=== PATIENT | male | born 1975 | race Caucasian/White ===

== ENCOUNTER 2020-04-05 10:51 | Inpatient (IN) ==
[2020-04-05] MEDS ORDERED: HEPARIN SODIUM IN D5W 25,000 UNITS/500 ML BAG IV PRN (12:17)
[2020-04-05 12:46] LABS: BASOPHILS % (AUTO) 0.3 % (0.2-1.0); EOSINOPHILS % (AUTO) 0.1 % (0.9-2.9); HEMATOCRIT 44.3 % (42.0-54.0); HEMOGLOBIN 14.7 g/dL (13.5-18.0); LYMPHOCYTES # (AUTO) 0.8 X10^3/uL (1.3-2.9); LYMPHOCYTES % (AUTO) 5.5 % (21.0-51.0); MEAN CORPUSCULAR HGB CONC 33.2 g/dL (33.0-35.0); MEAN CORPUSCULAR VOLUME 93.4 fL (80.0-100.0); MONOCYTES # (AUTO) 0.6 x10^3/uL (0.3-0.8); MONOCYTES % (AUTO) 3.9 % (0.0-13.0); NEUTROPHILS # (AUTO) 13.4 x10^3/uL (2.2-4.8); NEUTROPHILS % (AUTO) 90.2 % (42.0-75.0); PLATELET COUNT 259 X10^3/uL (150.0-450.0); RED BLOOD COUNT 4.74 X10^6/uL (4.7-6.0); RED CELL DISTRIBUTION WIDTH 13.6 % (11.6-16.5); WHITE BLOOD COUNT 14.9 X10^3/uL (3.6-10.0)
[2020-04-05 13:01] LABS: ALANINE AMINOTRANSFERASE 58 Units/L (12-78); ALBUMIN 3.5 g/dL (3.4-5.0); ALKALINE PHOSPHATASE 70 Units/L (46-116); ASPARTATE AMINO TRANSFERASE 54 Units/L (15-37); BLOOD UREA NITROGEN 21 mg/dL (7-18); CARBON DIOXIDE 27.4 mmol/L (21-32); CHLORIDE 104 mmol/L (98-107); CREATININE 1.29 mg/dL (0.70-1.30); SODIUM 140 mmol/L (136-145); TOTAL PROTEIN 7.5 g/dL (6.4-8.2); eGFR NON BLACK RACES > 60 (>60)
[2020-04-05 13:34] LABS: BAND NEUTROPHILS % 3 % (0-10); PLATELET MORPHOLOGY COMMENT NORMAL (NORMAL)
[2020-04-05 13:47] VITALS: BMI 34.4
[2020-04-05] MEDS ORDERED: HEPARIN SODIUM INJ 5000 UNITS ONE ×2 (13:50→21:48)
[2020-04-05] MEDS: NS 1000 ML 1,000 ML IV SCH (13:53)
--- NOTE | 2020-04-05 16:49 | DR.H&P ---
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 He reports symptoms started a few weeks prior that he noticed some swelling. Pain is sharp, tingling, located bottom of left foot, worse with ambulation. Pt was sent to the hospital ultrasound that revealed extensive DVT of left lower extremity, common femoral and superficial veins, or in popliteal veins. Findings compatible with near occlusive thrombus. He was directly admitted to the hospital. Labs: Wbc 14.9, Hgb 14.7, Plt 259, Na 140, K 4.4, Cr 1.29, Gluc 101. Pt was started on Heparin gtt. Order tramadol for pain and IVF@KVO. Pt admits to strong family history of blood clots including his grandmother, aunt, brother, and cousin. Will get hypercoagulable panel labs to evaluate. Continue to monitor and follow up labs/imaging in the morning. Past Medical History Past Medical History: CVA Family History Family Medical History: Diabetes Mellitus and Hypertension Social History Does patient currently use any type of tobacco product: No Have you used tobacco products in the last 12 months: No Type of Tobacco Use: None Alcohol Use: None Drug Use: None Medications Home Medications: No Known Drug Allergies Allergy (Verified 04/05/20 12:21) CONTINUE taking the following medications meloxicam 7.5 mg PO BID 04/05/20 [History] methylprednisolone 4 mg PO . DIRECTED 04/05/20 [History] Labs Result Diagrams: 04/06/20 06:20 04/06/20 06:20 Labs: Laboratory WBC 14.9 X10^3/uL (3.6-10.0) H 04/05/20 12:35 RBC 4.74 X10^6/uL (4.7-6.0) 04/05/20 12:35 Hgb 14.7 g/dL (13.5-18.0) 04/05/20 12:35 Hct 44.3 % (42.0-54.0) 04/05/20 12:35 MCV 93.4 fL (80.0-100.0) 04/05/20 12:35 MCH 31.0 pg (27.0-34.0) 04/05/20 12:35 MCHC 33.2 g/dL (33.0-35.0) 04/05/20 12:35 RDW 13.6 % (11.6-16.5) 04/05/20 12:35 Plt Count 259 X10^3/uL (150.0-450.0) 04/05/20 12:35 Plt Count Comment Adequate (ADEQUATE) 04/05/20 12:35 MPV 9.0 fL (7.4-11.0) 04/05/20 12:35 Neut % (Auto) 90.2 % (42.0-75.0) H 04/05/20 12:35 Lymph % (Auto) 5.5 % (21.0-51.0) L 04/05/20 12:35 [place] % (Auto) 3.9 % (0.0-13.0) 04/05/20 12:35 Eos % (Auto) 0.1 % (0.9-2.9) L 04/05/20 12:35 Baso % (Auto) 0.3 % (0.2-1.0) 04/05/20 12:35 Neut # (Auto) 13.4 x10^3/uL (2.2-4.8) H 04/05/20 12:35 Lymph # (Auto) 0.8 X10^3/uL (1.3-2.9) L 04/05/20 12:35 [place] # (Auto) 0.6 x10^3/uL (0.3-0.8) 04/05/20 12:35 Eos # (Auto) 0.0 x10^3/uL (0.0-0.2) 04/05/20 12:35 Baso # (Auto) 0.0 X10^3/uL (0.0-0.1) 04/05/20 12:35 Absolute Nucleated RBC 0.0 /100WBC 04/05/20 12:35 Total Counted 100 04/05/20 12:35 Neutrophils % (Manual) 86 % (39-76) H 04/05/20 12:35 Band Neutrophils % 3 % (0-10) 04/05/20 12:35 Lymphocytes % (Manual) 9 % (13-43) L 04/05/20 12:35 Monocytes % (Manual) 2 % (4-9) L 04/05/20 12:35 Plt Morphology Comment Normal (NORMAL) 04/05/20 12:35 RBC Morphology Normal (NORMAL) 04/05/20 12:35 PT 13.6 SECONDS (11.8-14.3) 04/05/20 12:35 INR Target Range - 04/05/20 12:35 INR 1.07 (0.8-1.3) 04/05/20 12:35 APTT 23.8 SECONDS (22.9-36.5) 04/05/20 12:35 PTT Comment - 04/05/20 12:35 Sodium 140 mmol/L (136-145) 04/05/20 12:35 Corrected Sodium TNP 04/05/20 12:35 Potassium 4.4 mmol/L (3.5-5.1) 04/05/20 12:35 Chloride 104 mmol/L (98-107) 04/05/20 12:35 Carbon Dioxide 27.4 mmol/L (21-32) 04/05/20 12:35 BUN 21 mg/dL (7-18) H 04/05/20 12:35 Creatinine 1.29 mg/dL (0.70-1.30) 04/05/20 12:35 Est GFR (MDRD) Af Amer > 60 (>60) 04/05/20 12:35 Est GFR (MDRD) Non-Af > 60 (>60) 04/05/20 12:35 Glucose 101 mg/dL (65-99) H 04/05/20 12:35 Calcium 9.0 mg/dL (8.5-10.1) 04/05/20 12:35 Corrected Calcium TNP 04/05/20 12:35 Total Bilirubin 1.40 mg/dL (0.2-1.0) H 04/05/20 12:35 AST 54 Units/L (15-37) H 04/05/20 12:35 ALT 58 Units/L (12-78) 04/05/20 12:35 Alkaline Phosphatase 70 Units/L (46-116) 04/05/20 12:35 Total Protein 7.5 g/dL (6.4-8.2) 04/05/20 12:35 Albumin 3.5 g/dL (3.4-5.0) 04/05/20 12:35 Globulin 4.0 g/dL (2.5-4.5) 04/05/20 12:35 Albumin/Globulin Ratio 0.9 Ratio (1.1-2.1) L 04/05/20 12:35 SARS-CoV-2 (PCR) Negative (NEGATIVE) 04/05/20 15:00 Review of Systems Constitutional: No Symptoms Reported Eyes: No Symptoms Reported ENT: No Symptoms Reported Respiratory: No Symptoms Reported Cardiovascular: No Symptoms Reported Gastrointestinal: No Symptoms Reported Genitourinary: No Symptoms Reported Musculoskeletal: Leg Pain (Left) and Foot Pain (Left ) Skin: No Symptoms Reported Neurological: Other (Chronic right sided hemiparesis ) Physical Exam Vital Signs: Temperature 98.2 F Pulse Rate [Left Brachial] 82 Respiratory Rate 20 Blood Pressure [Left Arm] 113/60 O2 Sat by Pulse Oximetry 99 Oriented: Normal Eyes: Normal Ear: Normal Nose: Normal Throat: Normal Respiratory: Clear Throughout Cardiovascular: Normal : Normal Auscultation: Bowel Sounds: Normal Palpation: Normal Tenderness: Normal Skin: Normal Musculoskeletal: Normal and Leg (Left leg 3+ non-pitting edema) Psychiatric: Normal Mood Description: Calm and Appropriate Affect: Normal Speech Pattern: Clear and Appropriate Assessment/Plan (1) Acute deep vein thrombosis (DVT) of left lower extremity: Status: Acute Plan: Start Heparin gtt Pain control Order hypercoagulable labs Review H&P Reviewed: Yes Patient was examined?: Yes
[2020-04-05] MEDS ORDERED: ULTRAM PO PRN (17:07)
[2020-04-05] MEDS ORDERED: HEPARIN SODIUM INJ 5000 UNITS IVP ONE ×2 (20:55→21:54)
[2020-04-06] MEDS ORDERED: NS 100 ML IV 0 ML IV ONE (06:29)
[2020-04-06 06:36] LABS: BASOPHILS # (AUTO) 0.1 X10^3/uL (0.0-0.1); BASOPHILS % (AUTO) 1.2 % (0.2-1.0); EOSINOPHILS # (AUTO) 0.1 x10^3/uL (0.0-0.2); EOSINOPHILS % (AUTO) 0.6 % (0.9-2.9); HEMATOCRIT 40.1 % (42.0-54.0); HEMOGLOBIN 13.6 g/dL (13.5-18.0); LYMPHOCYTES # (AUTO) 1.3 X10^3/uL (1.3-2.9); LYMPHOCYTES % (AUTO) 15.5 % (21.0-51.0); MEAN CORPUSCULAR HEMOGLOBIN 31.6 pg (27.0-34.0); MEAN CORPUSCULAR VOLUME 92.9 fL (80.0-100.0); MEAN PLATELET VOLUME 9.2 fL (7.4-11.0); MONOCYTES # (AUTO) 0.7 x10^3/uL (0.3-0.8); MONOCYTES % (AUTO) 9.2 % (0.0-13.0); NEUTROPHILS # (AUTO) 5.9 x10^3/uL (2.2-4.8); NEUTROPHILS % (AUTO) 73.5 % (42.0-75.0); PLATELET COUNT 255 X10^3/uL (150.0-450.0); RED BLOOD COUNT 4.32 X10^6/uL (4.7-6.0); RED CELL DISTRIBUTION WIDTH 13.6 % (11.6-16.5); WHITE BLOOD COUNT 8.1 X10^3/uL (3.6-10.0)
[2020-04-06 06:51] LABS: ALANINE AMINOTRANSFERASE 53 Units/L (12-78); ALBUMIN 2.9 g/dL (3.4-5.0); ALKALINE PHOSPHATASE 56 Units/L (46-116); ASPARTATE AMINO TRANSFERASE 46 Units/L (15-37); BLOOD UREA NITROGEN 24 mg/dL (7-18); CALCIUM 8.3 mg/dL (8.5-10.1); CARBON DIOXIDE 27.8 mmol/L (21-32); CHLORIDE 106 mmol/L (98-107); COR CA(FOR HYPOALB) 9.2 mg/dL (8.5-10.1); CREATININE 1.14 mg/dL (0.70-1.30); SODIUM 141 mmol/L (136-145); TOTAL PROTEIN 6.5 g/dL (6.4-8.2); eGFR NON BLACK RACES > 60 (>60)
--- NOTE | 2020-04-06 09:42 | PCM.PROG ---
Progress Note Progress Note for Day of Date of Exam: 04/06/20 Subjective Subjective: Pt is a 44 y/o male pmhx spastic hemiparesis on right side d/t CVA admitted after U/S positive for extensive DVT of left lower extremity, common femoral and superficial veins, in popliteal veins. Findings compatible with near occlusive thrombus. This morning he reports some improvement in his pain. No acute event overnight. Labs: Wbc 8.1, Hgb 13.6, Plt 255, Na 141, K 4, Cr 1.14, Gluc 104. Hypercoagulation panel pending. Pt is currently on Heparin gtt, will d/c and start on Lovenox 100mg BID and bridge to coumadin, starting dose 5mg daily. Follow serial INR. Pt has tramadol for pain and IVF@KVO. Continue to monitor and follow up labs/imaging in the morning. Past Medical Family Social History Past Med/Fam/Surg Hx: No changes since H&P Allergies: Allergies No Known Drug Allergies Allergy (Verified 04/05/20 12:21) Vital Signs and I&O's Vital Signs: Temperature 98.2 F Pulse Rate [Right Brachial] 77 Pulse Rate [Left Brachial] 70 Respiratory Rate 18 Blood Pressure [Right Arm] 117/56 Blood Pressure [Left Arm] 97/61 O2 Sat by Pulse Oximetry 100 Intake and Output: Intake & Output 04/03/20 04/04/20 04/05/20 04/06/20 23:59 23:59 23:59 23:59 Intake Total 1221 / 1221 389.7 / 389.7 Balance 1221 / 1221 389.7 / 389.7 Physical Exam Oriented: Normal Eyes: Normal Ear: Normal Nose: Normal Throat: Normal Cardiovascular: Normal : Normal Auscultation: Bowel Sounds: Normal Tenderness: Normal Skin: Normal Musculoskeletal: Normal and Leg (Left leg 3+ non-pitting edema) Psychiatric: Normal Mood Description: Calm and Appropriate Affect: Normal Speech Pattern: Clear and Appropriate Laboratory and Diagnostics Result Diagrams: 04/06/20 06:20 04/06/20 06:20 Labs: Laboratory WBC 8.1 X10^3/uL (3.6-10.0) 04/06/20 06:20 RBC 4.32 X10^6/uL (4.7-6.0) L 04/06/20 06:20 Hgb 13.6 g/dL (13.5-18.0) 04/06/20 06:20 Hct 40.1 % (42.0-54.0) L 04/06/20 06:20 MCV 92.9 fL (80.0-100.0) 04/06/20 06:20 MCH 31.6 pg (27.0-34.0) 04/06/20 06:20 MCHC 34.0 g/dL (33.0-35.0) 04/06/20 06:20 RDW 13.6 % (11.6-16.5) 04/06/20 06:20 Plt Count 255 X10^3/uL (150.0-450.0) 04/06/20 06:20 Plt Count Comment Adequate (ADEQUATE) 04/05/20 12:35 MPV 9.2 fL (7.4-11.0) 04/06/20 06:20 Neut % (Auto) 73.5 % (42.0-75.0) 04/06/20 06:20 Lymph % (Auto) 15.5 % (21.0-51.0) L 04/06/20 06:20 [place] % (Auto) 9.2 % (0.0-13.0) 04/06/20 06:20 Eos % (Auto) 0.6 % (0.9-2.9) L 04/06/20 06:20 Baso % (Auto) 1.2 % (0.2-1.0) H 04/06/20 06:20 Neut # (Auto) 5.9 x10^3/uL (2.2-4.8) H 04/06/20 06:20 Lymph # (Auto) 1.3 X10^3/uL (1.3-2.9) 04/06/20 06:20 [place] # (Auto) 0.7 x10^3/uL (0.3-0.8) 04/06/20 06:20 Eos # (Auto) 0.1 x10^3/uL (0.0-0.2) 04/06/20 06:20 Baso # (Auto) 0.1 X10^3/uL (0.0-0.1) 04/06/20 06:20 Absolute Nucleated RBC 0.0 /100WBC 04/06/20 06:20 Total Counted 100 04/05/20 12:35 Neutrophils % (Manual) 86 % (39-76) H 04/05/20 12:35 Band Neutrophils % 3 % (0-10) 04/05/20 12:35 Lymphocytes % (Manual) 9 % (13-43) L 04/05/20 12:35 Monocytes % (Manual) 2 % (4-9) L 04/05/20 12:35 Plt Morphology Comment Normal (NORMAL) 04/05/20 12:35 RBC Morphology Normal (NORMAL) 04/05/20 12:35 PT 13.6 SECONDS (11.8-14.3) 04/05/20 12:35 INR Target Range - 04/05/20 12:35 INR 1.07 (0.8-1.3) 04/05/20 12:35 APTT 112.8 SECONDS (22.9-36.5) H 04/06/20 02:44 PTT Comment - 04/06/20 02:44 Sodium 141 mmol/L (136-145) 04/06/20 06:20 Corrected Sodium TNP 04/06/20 06:20 Potassium 4.0 mmol/L (3.5-5.1) 04/06/20 06:20 Chloride 106 mmol/L (98-107) 04/06/20 06:20 Carbon Dioxide 27.8 mmol/L (21-32) 04/06/20 06:20 BUN 24 mg/dL (7-18) H 04/06/20 06:20 Creatinine 1.14 mg/dL (0.70-1.30) 04/06/20 06:20 Est GFR (MDRD) Af Amer > 60 (>60) 04/06/20 06:20 Est GFR (MDRD) Non-Af > 60 (>60) 04/06/20 06:20 Glucose 104 mg/dL (65-99) H 04/06/20 06:20 Calcium 8.3 mg/dL (8.5-10.1) L 04/06/20 06:20 Corrected Calcium 9.2 mg/dL (8.5-10.1) 04/06/20 06:20 Total Bilirubin 1.00 mg/dL (0.2-1.0) 04/06/20 06:20 AST 46 Units/L (15-37) H 04/06/20 06:20 ALT 53 Units/L (12-78) 04/06/20 06:20 Alkaline Phosphatase 56 Units/L (46-116) 04/06/20 06:20 Total Protein 6.5 g/dL (6.4-8.2) 04/06/20 06:20 Albumin 2.9 g/dL (3.4-5.0) L 04/06/20 06:20 Globulin 3.6 g/dL (2.5-4.5) 04/06/20 06:20 Albumin/Globulin Ratio 0.8 Ratio (1.1-2.1) L 04/06/20 06:20 SARS-CoV-2 (PCR) Negative (NEGATIVE) 04/05/20 15:00 Plan (1) Acute deep vein thrombosis (DVT) of left lower extremity: Status: Acute Plan: Start Lovenox BID, bridge to coumadin. Follow up INR, Hypercoagulation labs Continue pain control
[2020-04-06] MEDS: LOVENOX INJ 100 MG SYR SC SCH ×2 (09:49→20:41)
[2020-04-06] MEDS: NS 1000 ML 1,000 ML IV SCH (12:34)
[2020-04-06] MEDS ORDERED: COUMADIN TAB 5 MG (JANTOVEN) PO SCH (21:00)
[2020-04-07 06:19] LABS: BASOPHILS # (AUTO) 0.1 X10^3/uL (0.0-0.1); BASOPHILS % (AUTO) 0.7 % (0.2-1.0); EOSINOPHILS # (AUTO) 0.1 x10^3/uL (0.0-0.2); EOSINOPHILS % (AUTO) 0.7 % (0.9-2.9); HEMATOCRIT 41.8 % (42.0-54.0); LYMPHOCYTES # (AUTO) 1.2 X10^3/uL (1.3-2.9); LYMPHOCYTES % (AUTO) 16.4 % (21.0-51.0); MEAN CORPUSCULAR HEMOGLOBIN 31.4 pg (27.0-34.0); MEAN CORPUSCULAR HGB CONC 33.6 g/dL (33.0-35.0); MEAN CORPUSCULAR VOLUME 93.5 fL (80.0-100.0); MEAN PLATELET VOLUME 9.4 fL (7.4-11.0); MONOCYTES # (AUTO) 0.6 x10^3/uL (0.3-0.8); MONOCYTES % (AUTO) 7.4 % (0.0-13.0); NEUTROPHILS # (AUTO) 5.7 x10^3/uL (2.2-4.8); NEUTROPHILS % (AUTO) 74.8 % (42.0-75.0); PLATELET COUNT 251 X10^3/uL (150.0-450.0); RED BLOOD COUNT 4.47 X10^6/uL (4.7-6.0); WHITE BLOOD COUNT 7.6 X10^3/uL (3.6-10.0)
[2020-04-07 06:30] LABS: ALANINE AMINOTRANSFERASE 58 Units/L (12-78); ALBUMIN 3.1 g/dL (3.4-5.0); ALKALINE PHOSPHATASE 68 Units/L (46-116); ASPARTATE AMINO TRANSFERASE 51 Units/L (15-37); BLOOD UREA NITROGEN 28 mg/dL (7-18); CALCIUM 8.7 mg/dL (8.5-10.1); CARBON DIOXIDE 26.6 mmol/L (21-32); CHLORIDE 109 mmol/L (98-107); COR CA(FOR HYPOALB) 9.4 mg/dL (8.5-10.1); CREATININE 1.24 mg/dL (0.70-1.30); SODIUM 145 mmol/L (136-145); TOTAL PROTEIN 6.8 g/dL (6.4-8.2); eGFR NON BLACK RACES > 60 (>60)
[2020-04-07 08:21] VITALS: BP 100/68
[2020-04-07] MEDS ORDERED: MILK OF MAGNESIA PO PRN (08:51)
[2020-04-07] MEDS ORDERED: COLACE CAP 100 MG PO PRN (08:51)
[2020-04-07] MEDS ORDERED: MILK OF MAGNESIA ONE (09:09)
[2020-04-07] MEDS ORDERED: COLACE CAP 100 MG PO ONE (09:09)
[2020-04-07] MEDS: LOVENOX INJ 100 MG SYR SC SCH (09:17)
--- NOTE | 2020-04-07 09:41 | W.DIS.FURT ---
Summary of Discharge Discharge Summary of Date Date of Exam: 04/07/20 Admission Date Date of Admission: 04/05/20 Admission Diagnosis Hospital Course: Pt is a 44 y/o male pmhx spastic hemiparesis on right side d/t CVA admitted after U/S positive for extensive DVT of left lower extremity, common femoral and superficial veins, in popliteal veins. Findings compatible with near occlusive thrombus. His hospital course included being started on heparin gtt, then lovenox as a bridge to coumadin. Pt did not have insurance and was unable to afford NOACs. Labs: Wbc 7.6, Hgb 14, Plt 251, Na 145, K 4.1, Cr 1.24, Gluc 98. INR:1.0. Hypercoagulation panel still pending, results will need to be followed up as outpatient. Pt was discharge in stable condition with Rx Lovenox 100mg BID and Coumadin 5mg daily. He is instructed to follow up with his pcp on Saturday for INR check. Vital Signs: Vital Signs (72 hours) 04/05/20 12:12 04/05/20 13:00 04/05/20 14:00 Temperature 98.2 F Pulse Rate [Left Brachial] 85 79 88 Pulse Rate [Right Brachial] Respiratory Rate 20 20 20 Blood Pressure [Left Arm] 123/60 112/63 116/73 Blood Pressure [Right Arm] O2 Sat by Pulse Oximetry 96 100 99 04/05/20 15:00 04/05/20 16:00 04/05/20 17:00 Temperature 98.5 F Pulse Rate [Left Brachial] 82 82 74 Pulse Rate [Right Brachial] Respiratory Rate 20 20 20 Blood Pressure [Left Arm] 113/60 107/56 100/56 Blood Pressure [Right Arm] O2 Sat by Pulse Oximetry 99 100 100 04/05/20 18:00 04/05/20 19:00 04/05/20 20:00 Temperature 98.3 F Pulse Rate [Left Brachial] 72 84 74 Pulse Rate [Right Brachial] Respiratory Rate 20 20 20 Blood Pressure [Left Arm] 99/50 92/54 99/67 Blood Pressure [Right Arm] O2 Sat by Pulse Oximetry 100 100 100 04/05/20 21:00 04/05/20 22:00 04/05/20 23:00 Temperature 98.3 F Pulse Rate [Left Brachial] 74 74 75 Pulse Rate [Right Brachial] Respiratory Rate 20 20 20 Blood Pressure [Left Arm] 94/55 94/58 88/57 Blood Pressure [Right Arm] O2 Sat by Pulse Oximetry 100 100 100 04/06/20 00:00 04/06/20 01:00 04/06/20 02:00 Temperature Pulse Rate [Left Brachial] 69 76 63 Pulse Rate [Right Brachial] Respiratory Rate 20 20 20 Blood Pressure [Left Arm] 96/62 87/57 94/53 Blood Pressure [Right Arm] O2 Sat by Pulse Oximetry 100 99 99 04/06/20 03:00 04/06/20 04:00 04/06/20 05:00 Temperature 98.3 F Pulse Rate [Left Brachial] 64 70 69 Pulse Rate [Right Brachial] Respiratory Rate 20 20 20 Blood Pressure [Left Arm] 99/54 104/55 93/56 Blood Pressure [Right Arm] O2 Sat by Pulse Oximetry 99 99 100 04/06/20 05:35 04/06/20 07:00 04/06/20 08:00 Temperature 98.2 F Pulse Rate [Left Brachial] 70 Pulse Rate [Right Brachial] 77 74 Respiratory Rate 20 18 20 Blood Pressure [Left Arm] 97/61 Blood Pressure [Right Arm] 117/56 98/57 O2 Sat by Pulse Oximetry 100 100 100 04/06/20 09:00 04/06/20 10:00 04/06/20 11:00 Temperature 98.0 F Pulse Rate [Left Brachial] Pulse Rate [Right Brachial] 75 76 73 Respiratory Rate 20 18 20 Blood Pressure [Left Arm] Blood Pressure [Right Arm] 92/55 95/56 95/53 O2 Sat by Pulse Oximetry 100 100 100 04/06/20 12:00 04/06/20 13:00 04/06/20 14:00 Temperature Pulse Rate [Left Brachial] Pulse Rate [Right Brachial] 68 75 72 Respiratory Rate 18 18 18 Blood Pressure [Left Arm] Blood Pressure [Right Arm] 93/51 100/55 92/53 O2 Sat by Pulse Oximetry 100 100 98 04/06/20 15:00 04/06/20 17:00 04/06/20 18:00 Temperature 98.3 F Pulse Rate [Left Brachial] Pulse Rate [Right Brachial] 73 73 79 Respiratory Rate 18 20 18 Blood Pressure [Left Arm] Blood Pressure [Right Arm] 99/56 97/52 104/55 O2 Sat by Pulse Oximetry 98 100 96 04/06/20 19:00 04/06/20 20:00 04/06/20 21:00 Temperature 98.3 F Pulse Rate [Left Brachial] Pulse Rate [Right Brachial] 78 80 74 Respiratory Rate 20 18 18 Blood Pressure [Left Arm] Blood Pressure [Right Arm] 99/56 96/54 98/69 O2 Sat by Pulse Oximetry 96 98 96 04/06/20 21:56 04/06/20 23:00 04/07/20 00:00 Temperature 98.1 F Pulse Rate [Left Brachial] Pulse Rate [Right Brachial] 76 79 77 Respiratory Rate 18 18 18 Blood Pressure [Left Arm] Blood Pressure [Right Arm] 91/52 102/55 108/58 O2 Sat by Pulse Oximetry 95 96 97 04/07/20 01:00 04/07/20 02:00 04/07/20 04:00 Temperature Pulse Rate [Left Brachial] Pulse Rate [Right Brachial] 78 68 66 Respiratory Rate 18 18 18 Blood Pressure [Left Arm] Blood Pressure [Right Arm] 102/53 112/57 98/54 O2 Sat by Pulse Oximetry 97 95 95 04/07/20 07:00 04/07/20 08:00 Temperature 97.7 F Pulse Rate [Left Brachial] Pulse Rate [Right Brachial] 76 75 Respiratory Rate 20 20 Blood Pressure [Left Arm] Blood Pressure [Right Arm] 102/54 100/68 O2 Sat by Pulse Oximetry 99 97 Labs: Laboratory Last Values WBC 7.6 X10^3/uL (3.6-10.0) 04/07/20 05:40 RBC 4.47 X10^6/uL (4.7-6.0) L 04/07/20 05:40 Hgb 14.0 g/dL (13.5-18.0) 04/07/20 05:40 Hct 41.8 % (42.0-54.0) L 04/07/20 05:40 MCV 93.5 fL (80.0-100.0) 04/07/20 05:40 MCH 31.4 pg (27.0-34.0) 04/07/20 05:40 MCHC 33.6 g/dL (33.0-35.0) 04/07/20 05:40 RDW 14.0 % (11.6-16.5) 04/07/20 05:40 Plt Count 251 X10^3/uL (150.0-450.0) 04/07/20 05:40 Plt Count Comment Adequate (ADEQUATE) 04/05/20 12:35 MPV 9.4 fL (7.4-11.0) 04/07/20 05:40 Neut % (Auto) 74.8 % (42.0-75.0) 04/07/20 05:40 Lymph % (Auto) 16.4 % (21.0-51.0) L 04/07/20 05:40 [place] % (Auto) 7.4 % (0.0-13.0) 04/07/20 05:40 Eos % (Auto) 0.7 % (0.9-2.9) L 04/07/20 05:40 Baso % (Auto) 0.7 % (0.2-1.0) 04/07/20 05:40 Neut # (Auto) 5.7 x10^3/uL (2.2-4.8) H 04/07/20 05:40 Lymph # (Auto) 1.2 X10^3/uL (1.3-2.9) L 04/07/20 05:40 [place] # (Auto) 0.6 x10^3/uL (0.3-0.8) 04/07/20 05:40 Eos # (Auto) 0.1 x10^3/uL (0.0-0.2) 04/07/20 05:40 Baso # (Auto) 0.1 X10^3/uL (0.0-0.1) 04/07/20 05:40 Absolute Nucleated RBC 0.1 /100WBC 04/07/20 05:40 Total Counted 100 04/05/20 12:35 Neutrophils % (Manual) 86 % (39-76) H 04/05/20 12:35 Band Neutrophils % 3 % (0-10) 04/05/20 12:35 Lymphocytes % (Manual) 9 % (13-43) L 04/05/20 12:35 Monocytes % (Manual) 2 % (4-9) L 04/05/20 12:35 Plt Morphology Comment Normal (NORMAL) 04/05/20 12:35 RBC Morphology Normal (NORMAL) 04/05/20 12:35 PT 12.9 SECONDS (11.8-14.3) 04/07/20 05:40 INR Target Range - 04/07/20 05:40 INR 1.00 (0.8-1.3) 04/07/20 05:40 APTT 112.8 SECONDS (22.9-36.5) H 04/06/20 02:44 PTT Comment - 04/06/20 02:44 Sodium 145 mmol/L (136-145) 04/07/20 05:40 Corrected Sodium TNP 04/07/20 05:40 Potassium 4.1 mmol/L (3.5-5.1) 04/07/20 05:40 Chloride 109 mmol/L (98-107) H 04/07/20 05:40 Carbon Dioxide 26.6 mmol/L (21-32) 04/07/20 05:40 BUN 28 mg/dL (7-18) H 04/07/20 05:40 Creatinine 1.24 mg/dL (0.70-1.30) 04/07/20 05:40 Est GFR (MDRD) Af Amer > 60 (>60) 04/07/20 05:40 Est GFR (MDRD) Non-Af > 60 (>60) 04/07/20 05:40 Glucose 98 mg/dL (65-99) 04/07/20 05:40 Calcium 8.7 mg/dL (8.5-10.1) 04/07/20 05:40 Corrected Calcium 9.4 mg/dL (8.5-10.1) 04/07/20 05:40 Total Bilirubin 0.80 mg/dL (0.2-1.0) 04/07/20 05:40 AST 51 Units/L (15-37) H 04/07/20 05:40 ALT 58 Units/L (12-78) 04/07/20 05:40 Alkaline Phosphatase 68 Units/L (46-116) 04/07/20 05:40 Total Protein 6.8 g/dL (6.4-8.2) 04/07/20 05:40 Albumin 3.1 g/dL (3.4-5.0) L 04/07/20 05:40 Globulin 3.7 g/dL (2.5-4.5) 04/07/20 05:40 Albumin/Globulin Ratio 0.8 Ratio (1.1-2.1) L 04/07/20 05:40 SARS-CoV-2 (PCR) Negative (NEGATIVE) 04/05/20 15:00 Reason For Visit: DVT LEFT LEG Discharge Date Discharge Date: 04/07/20 Discharge Diagnosis All Active Problems (Updated 04/05/20 @ 17:03 by Travis Uriostegui) Acute deep vein thrombosis (DVT) of left lower extremity (Acute) Plan of Treatment: Continue with present treatment and follow up plan. Pt is to keep follow up appointment as instructed and take medications as ordered. Discharge Medications Discharge Medications: No Known Drug Allergies Allergy (Verified 04/05/20 12:21) CONTINUE taking the following medications meloxicam 7.5 mg PO BID 04/05/20 [History] New Prescriptions docusate sodium 200 mg PO Q12H PRN 5 Days #30 cap 04/07/20 [Rx] enoxaparin 100 mg SC BID 7 Days #14 ml 04/07/20 [Rx] tramadol 50 mg PO BID PRN 15 Days #30 tab MDD 100mg 04/07/20 [Rx] warfarin [Jantoven] 5 mg PO HS 30 Days #30 tab 04/07/20 [Rx] Follow up and Referral Follow Up: 04/11/20 Discharge Disposition Discharge Disposition: Home Discharge Condition: Stable Discharge Plan Discharge Plan Hospital Course: Pt is a 44 y/o male pmhx spastic hemiparesis on right side d/t CVA admitted after U/S positive for extensive DVT of left lower extremity, common femoral and superficial veins, in popliteal veins. Findings compatible with near occlusive thrombus. His hospital course included being started on heparin gtt, then lovenox as a bridge to coumadin. Pt did not have insurance and was unable to afford NOACs. Labs: Wbc 7.6, Hgb 14, Plt 251, Na 145, K 4.1, Cr 1.24, Gluc 98. INR:1.0. Hypercoagulation panel still pending, results will need to be followed up as outpatient. Pt was discharge in stable condition with Rx Lovenox 100mg BID and Coumadin 5mg daily. He is instructed to follow up with his pcp on Saturday for INR check. Patient Disposition: HOME, SELF-CARE Condition: Stable Health Concerns: Post Hospitalization: new medications and changes needed to prevent readmission or further decline. Pt educated and given instructions on all concerns. Care Plan Goals: Problem: Pain/Alteration in Comfort Goal: Improve/ Resolve Pain; Achieve Pain Tolerance Instructions: Take pain medications as prescribed. Contact your primary care provider if your pain is unrelieved or worsens. Follow up with primary care provider as directed. Plan of Treatment: Continue with present treatment and follow up plan. Pt is to keep follow up appointment as instructed and take medications as ordered. Prescriptions: New tramadol 50 mg Tablet 50 mg PO BID MDD 100mg PRN (Reason: pain) 15 Days Qty: 30 RF: 0 warfarin [Jantoven] 5 mg Tablet 5 mg PO HS 30 Days Qty: 30 RF: 0 enoxaparin 100 mg/mL Syringe 100 mg SC BID 7 Days Qty: 14 RF: 1 docusate sodium 100 mg Capsule 200 mg PO Q12H PRN (Reason: constipation) 5 Days Qty: 30 RF: 0 Continued meloxicam 7.5 mg tablet 7.5 mg PO BID RF: 0 Discontinued methylprednisolone 4 mg tablets,dose pack 4 mg PO . DIRECTED RF: 0 Follow ups/Referrals Follow ups/Referrals: Travis Uriostegui [Primary Care Provider] - 04/11/20 1:30 pm Instructions Instructions: Vitamin K Foods and Warfarin, Warfarin Coagulopathy, Prothrombin Time, International Normalized Ratio Test, Enoxaparin injection, Bleeding Precautions When on Anticoagulant Therapy, Adult, What You Need to Know About Warfarin, How and Where to Give Subcutaneous Enoxaparin Injections, Deep Vein Thrombosis Activity Restrictions/Additional Instructions: Attempting to set up home INR machine. Someone with [facility] will be in contact with you if you qualify for machine. Stand Alone Forms: Precautions for COVID19, Patient Portal, Social Distancing
[2020-04-08 07:04] LABS: ANTI-NUCLEAR ANTIBODY TEST None Detected (None Detected)
== END 2020-04-07 11:57 | disposition home or self-care (01) | DRG 300 ==
LOC: MED/SURG 11:21
PROVIDERS: ADMIT Family Medicine; ATTEND Family Medicine
DX: I69.351 Hemiplegia and hemiparesis following cerebral infarction affecting right dominant side; Z20.828 Contact with and (suspected) exposure to other viral communicable diseases; R79.1 Abnormal coagulation profile; R60.0 Localized edema; R26.89 Other abnormalities of gait and mobility; I82.412 Acute embolism and thrombosis of left femoral vein; I82.432 Acute embolism and thrombosis of left popliteal vein